=== PATIENT | female | born 1995 | race Two or more races ===

== ENCOUNTER 2024-07-16 11:27 | Emergency (ER) | payer OTHER, SELFPAY ==
--- NOTE | 2024-07-16 12:04 | PC.NURSE ---
Called pt back, no answer at this time
--- NOTE | 2024-07-16 12:38 | PC.NURSE ---
called pt back, no answer at this time
--- NOTE | 2024-07-16 12:55 | PC.NURSE ---
called pt back, no answer at this time
--- NOTE | 2024-07-16 14:45 | EKG_ITS ---
[facility] Test Date: 2024-07-16 Pat Name: MICHI MONTEIROepartment: Room: - Gender: Female [employer]: : 1995 Requested By: ED Temporary Provider Order Number: [id number] Reading MD: ED Temporary Provider Measurements Intervals Temple Rate: 87 P: 70 GA: 176 QRS: 70 QRSD: 75 T: -4 QT: 336 QTc: 405 Interpretive Statements SINUS RHYTHM NONSPECIFIC T-WAVE ABNORMALITY No previous ECG available for comparison /store/S0/[id number].pdf
[2024-07-16 14:46] VITALS: BP 110/73; PULSE 94; RESP 18; TEMP 36.8; O2SAT 98
--- NOTE | 2024-07-16 15:19 | XR_ITS ---
Examination: Complete OB ultrasound greater than 14 weeks Date and time of exam: July 16, 2024 1618 hrs. Indications: Chest pain beginning last night 8:00 PM, clinical diagnosis ovarian torsion Findings: Viable intrauterine single fetus with single amniotic sac Transverse, head maternal left Cardiac motion 150 BPM Placenta posterior grade 2 Umbilical cord insertion seen Amniotic fluid index normal Cervix ovaries are obscured by bowel gas. Composite estimated gestational age based on BPD, head circumference, abdominal circumference, femur length is 15 weeks 3 days Estimated weight 126.7 g. Survey of intracranial anatomy, spinal anatomy, abdominal anatomy, four-chamber heart performed with no abnormalities identified. Impression: Viable intrauterine gestation transverse presentation.
--- NOTE | 2024-07-16 15:20 | PD.EDRME ---
Rapid Medical Screening Exam RME Arrival date/time: 07/16/24 11:27 This is a 29-year-old female that comes in with complaint of left-sided chest pain that radiates down her left arm and also complains of numbness to her left arm. Patient also complains of some lower back pain. Patient reports that she is 15 weeks . Last menstrual period was March 03. Patient is a 3 para 2. Patient denies any nausea vomiting diarrhea. I have greeted and performed a focused initial assessment of this patient. Initial appropriate labs ordered at this time. A comprehensive ED assessment and evaluation of the patient and analysis of all test and completion of medical decision making process will be conducted by additional ED provider. Chief Complaint: Chest Pain Vital signs: Vital Signs Temperature 98.2 F 07/16/24 14:46 Pulse Rate 94 07/16/24 14:46 Respiratory Rate 18 07/16/24 14:46 Blood Pressure 110/73 07/16/24 14:46 Pulse Oximetry (%) 98 07/16/24 14:46 Oxygen Delivery Method Room Air 07/16/24 14:46
[2024-07-16 16:00] LABS: Basophils % (Auto) 0 % (0-2.5); Eosinophils # (Auto) 0.1 Thou/mm3 (0.0-0.5); Eosinophils % (Auto) 1 % (0-10); Hematocrit 36.4 % (36.0-46.0); Hemoglobin 12.2 g/dL (12.0-16.0); Immature Granulocytes % (Auto) 1 % (0-0); Immature Granulocytes Auto 0.07 Thou/mm3 (0.00-0.00); Lymphocytes # (Auto) 2.1 Thou/mm3 (1.0-4.8); Lymphocytes % (Auto) 19 % (10-50); Mean Corpuscular HGB Conc 33.5 g/dl (31.0-37.0); Mean Corpuscular Hemoglobin 32.3 pg (25.0-35.0); Mean Corpuscular Volume 96 fL (80-100); Monocytes # (Auto) 0.7 Thou/mm3 (0.0-0.8); Monocytes % (Auto) 6 % (0-12); Neutrophils # (Auto) 8.2 Thou/mm3 (1.8-7.7); Neutrophils % (Auto) 73 % (37-80); Nucleated Red Blood Cell % 0 /100 WBC (0); Platelet Count 240 Thou/mm3 (140-440); RDW Standard Deviation 46.6 fL (36.4-46.3); Red Blood Count 3.78 Miln/mm3 (4.00-5.20); White Blood Count 11.2 Thou/mm3 (3.6-11.0)
[2024-07-16 16:09] LABS: B-Type Natriuretic Peptide < 20 pg/mL (0-100)
[2024-07-16 16:11] LABS: Alanine Aminotransferase 26 U/L (10-49); Albumin, Serum 4.3 gm/dL (3.5-5.0); Albumin/Globulin Ratio 1.6 (1.2-2.2); Alkaline Phosphatase 59 U/L (46-116); Anion Gap 8 (7-16); Aspartate Amino Transferase 22 U/L (0-34); BUN/Creatinine Ratio 15 Ratio (12-20); Bilirubin,Total 0.4 mg/dL (0.3-1.2); Blood Urea Nitrogen 12 mg/dL (9-23); Calcium 9.5 mg/dL (8.3-10.6); Calcium (Corrected) 9.5 mg/dL (8.5-10.1); Carbon Dioxide 24.3 mMol/L (20.0-31.0); Chloride 105 mMol/L (98-107); Creatinine (Component) 0.8 mg/dL (0.6-1.3); Globulin 2.7 gm/dL (2.3-3.5); Glucose 67 mg/dL (74-106); Osmolality,Calculated 271 (275-295); Sodium 137 mMol/L (136-145); Troponin I < 0.002 ng/mL (0.0-0.045); eGFR > 60 See Note
[2024-07-16 16:43] LABS: Beta HCG,Quantitative 75271 mIU/mL (<5.0)
[2024-07-16 19:23] LABS: Collection Type, Urine Voided
[2024-07-16 19:30] LABS: Bilirubin,Urine Negative (Negative); Blood,Urine Trace (Negative); Clarity,Urine Clear (Clear/Hazy); Color,Urine Colorless (Lt Yel-Yel); Culture Indicated,Urine Not Indicated; Glucose, Urine Negative (Negative); Ketones,Urine Negative (Negative); Leukocyte Esterase,Urine Negative (Negative); Nitrite,Urine Negative (Negative); PH,Urine 6.5 (5.0-7.0); Protein,Urine Negative (Neg - Trace); RBC,Urine 1 /hpf (0-3); Specific Gravity,Urine 1.009 (1.001-1.035); Squamous Epithelial Cell,Urine 1 /hpf (0-5); Urobilinogen,Urine Negative mg/dL (0.0-1.0); WBC,Urine < 1 /hpf (0-5)
--- NOTE | 2024-07-16 20:04 | PD.EDRME ---
Rapid Medical Screening Exam RME Arrival date/time: 07/16/24 11:27 07/16/24 11:27 This is a 29-year-old female that comes in with complaint of left-sided chest pain that radiates down her left arm and also complains of numbness to her left arm. Patient also complains of some lower back pain. Patient reports that she is 15 weeks . Last menstrual period was March 03. Patient is a 3 para 2. Patient denies any nausea vomiting diarrhea. I have greeted and performed a focused initial assessment of this patient. Initial appropriate labs ordered at this time. A comprehensive ED assessment and evaluation of the patient and analysis of all test and completion of medical decision making process will be conducted by additional ED provider. Chief Complaint: Chest Pain Vital signs: Vital Signs Temperature 98.2 F 07/16/24 14:46 Pulse Rate 94 07/16/24 14:46 Respiratory Rate 18 07/16/24 14:46 Blood Pressure 110/73 07/16/24 14:46 Pulse Oximetry (%) 98 07/16/24 14:46 Oxygen Delivery Method Room Air 07/16/24 14:46 RME Narrative: 07/16/24 11:27 This is a 29-year-old female that comes in with complaint of left-sided chest pain that radiates down her left arm and also complains of numbness to her left arm. Patient also complains of some lower back pain. Patient reports that she is 15 weeks . Last menstrual period was March 03. Patient is a 3 para 2. Patient denies any nausea vomiting diarrhea. I have greeted and performed a focused initial assessment of this patient. Initial appropriate labs ordered at this time. A comprehensive ED assessment and evaluation of the patient and analysis of all test and completion of medical decision making process will be conducted by additional ED provider.
--- NOTE | 2024-07-16 20:14 | PC.NURSE ---
PT TOLD SECURITY SHE WAS LEAVING AT 2004
== END 2024-07-16 20:15 | disposition left against medical advice (07) ==
PROVIDERS: Nurse Practitioner Family; Emergency Provider Emergency Medicine
DX: O99.891 Other specified diseases and conditions complicating pregnancy (principal); R07.9 Chest pain, unspecified; R20.0 Anesthesia of skin; M54.50 Low back pain, unspecified; R94.31 Abnormal electrocardiogram [ECG] [EKG]; Z3A.15 15 weeks gestation of pregnancy; Z53.29 Procedure and treatment not carried out because of patient's decision for other reasons
CPT/HCPCS: 36415; 76805; 80053; 81001; 83880; 84484; 84702; 85025; 93005; 99281

== ENCOUNTER 2024-12-31 23:01 | Inpatient (IN) | payer OTHER, SELFPAY ==
[2024-12-31 23:08] VITALS: BMI 32.1
[2024-12-31 23:21] VITALS: BP 113/71; PULSE 83; RESP 18; RESP 98; TEMP 36.8
[2024-12-31 23:45] VITALS: PULSE 86; O2SAT 95
[2024-12-31 23:50] VITALS: PULSE 87; O2SAT 97
[2024-12-31 23:55] VITALS: PULSE 91; O2SAT 96
[2024-12-31 23:58] VITALS: PULSE 96; O2SAT 94
[2025-01-01] VITALS (395 sets, daily range): BP systolic 81–112; BP diastolic 50–73; PULSE 60–107; RESP 18; TEMP 36.5–36.8; O2SAT 90–100
--- NOTE | 2025-01-01 02:20 | ESHP_ITS ---
Documentation for date of: 01/01/25 OB Labor/Induct. HPI History of Present Illness Chief complaint: Contractions, vaginal bleeding : 3 Para: 2 Term pregnancies: 2 pregnancies: 0 Living children: 2 History of Abortions: Spontaneous and Elective: 0 History of Vaginal deliveries: 2 History of sections: No History of : No TANISHA: 01/04/25 Gestational Age (weeks): 39 Gestational Age (days): 4 History of present illness: The patient is a 29-year-old -0-0-2 EDC 01/04 at 39-4/7 weeks with all care with Dr Bowser. She was seen in triage with some bleeding. She was 1 to 2 cm dilated. She was observed for about an hour or so and reexamined she had progressed to 2 to 3 cm dilatation and was gayla every 1 to 2 minutes. Patient was admitted in early labor. Group B strep negative. She is interested in an epidural. History of Present Dating criteria: other (All records are not available on admission) Adequate Care: Yes Ultrasounds: normal mid trimester US Obstetrical complications: none Medical complications: none Labs Maternal Blood Type: Unknown Labs: Negative: Chlamydia, Gonorrhea and Group Beta Strep and Unknown: RPR, Hepatitis B, Rubella Titre, HIV, Herpes Type 1 and Herpes Type 2 Past Medical History Surgical History SURGICAL: Negative Section Meds Home Medications and Allergies Home Medications ?Medication ?Instructions ?Recorded ?Confirmed ?Type No Known Home Medications 08/24/2107/28 History Allergies Allergy/AdvReac Type Severity Reaction Status Date / Time No Known Allergies Allergy Verified 07/16/24 11:32 OB Exam Physical Exam Vital signs: Temp Pulse Resp BP Pulse Ox 98.3 F 94 18 92/54 L 98 12/31/24 23:21 01/01/25 01:49 12/31/24 23:21 01/01/25 01:49 01/01/25 02:16 Detailed Labor and Delivery Exam Dilation (cm): 2-3 Effacement (%): 75 Cervix position: posterior station: -2 Consistency: medium Presentation: Vertex Membranes: intact Baseline heart rate: 150 monitor accelerations: 15x15 monitor decelerations: None senior living variability: Marked (>25) Contraction frequency (min): Every 1 to 2 minutes OB Assessment & Plan Assessment and Plan (1) Supervision of high risk in third trimester: Status: Acute Assessment and plan: Admit patient. Pain medication as needed. Patient is interested in epidural. Anticipate .
[2025-01-01] MEDS: RINGERS LACTATED 1000 ML 1,000 ML 100 ML IV ×4 (03:07→19:46)
[2025-01-01 04:24] LABS: Syphilis Nonreactive (Nonreactive)
[2025-01-01 05:48] LABS: Basophils % (Auto) 0 % (0-2.5); Eosinophils # (Auto) 0.1 Thou/mm3 (0.0-0.5); Eosinophils % (Auto) 1 % (0-10); Hematocrit 33.6 % (36.0-46.0); Hemoglobin 11.4 g/dL (12.0-16.0); Immature Granulocytes % (Auto) 2 % (0-0); Immature Granulocytes Auto 0.25 Thou/mm3 (0.00-0.00); Lymphocytes # (Auto) 2.2 Thou/mm3 (1.0-4.8); Lymphocytes % (Auto) 18 % (10-50); Mean Corpuscular HGB Conc 33.9 g/dl (31.0-37.0); Mean Corpuscular Hemoglobin 33.3 pg (25.0-35.0); Mean Corpuscular Volume 98 fL (80-100); Monocytes # (Auto) 0.8 Thou/mm3 (0.0-0.8); Monocytes % (Auto) 7 % (0-12); Neutrophils # (Auto) 8.4 Thou/mm3 (1.8-7.7); Neutrophils % (Auto) 72 % (37-80); Nucleated Red Blood Cell % 0 /100 WBC (0); Platelet Count 192 Thou/mm3 (140-440); RDW Standard Deviation 51.3 fL (36.4-46.3); Red Blood Count 3.42 Miln/mm3 (4.00-5.20); White Blood Count 11.7 Thou/mm3 (3.6-11.0)
--- NOTE | 2025-01-01 12:30 | PD.LDPN ---
Documentation for date of: 01/01/25 OB Labor Progress Note Pain Control Comments: Epidural Pelvic Exam Dilation (cm): 3 Effacement (%): 50 station: -3 Amniotic membrane status: Intact Contractions Monitor mode: External Contraction frequency: 1-6 Contraction pattern: Tetanic Contraction intensity: Mild Status status: Category ll Assessment and Plan Comments: Term Labor Anticipate Informed consent obtained patient made aware of the risks complications alternatives and benefits of OVD and C/S and agrees with these modes of delivery if indicated.
[2025-01-01] MEDS: OXYTOCIN in NS 30 units 30 UNIT/500 ML BAG IV (12:44)
[2025-01-02] VITALS (18 sets, daily range): BP systolic 96–113; BP diastolic 48–75; PULSE 80–105; RESP 16–20; TEMP 36.4–37.3; O2SAT 95–100
[2025-01-02] MEDS: CITRIC ACID/SODIUM CITR 15 ML UDC (BICITRA) 30 ML PO (00:05)
[2025-01-02] MEDS: FAMOTIDINE INJ 10 MG/ML VIAL 2 ML 20 MG IV (00:06)
[2025-01-02] MEDS: ceFAZolin/D5W 2 GM IV 2 GM/100 ML BAG IV (00:06)
--- NOTE | 2025-01-02 00:14 | PD.LDPN ---
Documentation for date of: 01/02/25 OB Labor Progress Note Pelvic Exam Dilation (cm): 4 Effacement (%): 50 station: -3 Amniotic membrane status: Intact Contractions Monitor mode: External Contraction frequency: 1-4.5 Contraction pattern: Tetanic Contraction intensity: Moderate Status status: Category l Assessment and Plan Comments: Patient declines further trial of vaginal delivery Elects delivery She is multiparous and desires voluntary sterilization and has signed consent forms over 30 days ago in the office. Informed consent was obtained. She was made aware of the risks, complications alternatives and benefits of the proposed delivery and she agrees. She is aware of the failure rate and increased risk of tubal ectopic gestation of occurs.
--- NOTE | 2025-01-02 01:54 | ESDS_ITS ---
DS: Providers Provider Date of admission: 01/01/25 02:35 Primary care physician: Physician No Primary/Family Admitting Provider: Melissa Feliciano MD ([facility]) Attending Provider on Admission: Terry Bowser MD Attending Provider on DC: Terry Bowser MD Discharging Provider: Terry Bowser MD DS: Diagnosis Problem List Completed Was Problem List Reviewed/Reconciled?: Yes Summary/Hosp Course Brief History: The patient is a 29-year-old -0-0-2 EDC 01/04 at 39-4/7 weeks with all care with Dr Bowser. She was seen in triage with some bleeding. She was 1 to 2 cm dilated. She was observed for about an hour or so and reexamined she had progressed to 2 to 3 cm dilatation and was gayla every 1 to 2 minutes. Patient was admitted in early labor. Group B strep negative. She is interested in an epidural. Peripartum Data Delivery Method: Low Transverse Episiotomy Description: None Procedures: Procedures Operation Date: 01/02/25 00:45 <No data on this case meets the specified criteria> Time Spent with Patient Time attestation: Total time spent providing and/or coordinating discharge services: Exam Vital Signs Temp Pulse Resp BP Pulse Ox O2 Del Method 97.7 F 85 18 101/64 100 Room Air 01/01/25 19:57 01/02/25 00:12 01/01/25 19:57 01/02/25 00:12 01/02/25 00:17 01/01/25 07:27 Discharge Plan Plan Patient Disposition: HOME (Self Care) Patient condition on transfer: Stable Prescriptions/Referrals Prescriptions/Med Rec: New hydrocodone-acetaminophen 5-325 mg tablet 1 tab PO Q6H MDD 4 PRN (Reason: pain) Qty: 20 0RF ibuprofen 600 mg tablet 600 mg PO Q6H PRN (Reason: pain) Qty: 30 0RF Referrals: No Primary/Family,Physician [Primary Care Provider] - Patient/Caregiver Discharge Instructions Discharge Activity: activity as tolerated Other Discharge Activity Instructions:: Follow up office 1 week. Education Materials: C Section Dc Print Language: Romanian Stand Alone Forms: Sandra Award Info., Patient Portal Info Letter Planned Discharge Date 01/04/25
--- NOTE | 2025-01-02 01:55 | ESOP_ITS ---
Operative Note - FLIGHT OPERATION COORDINATOR Procedure Date of procedure: 01/02/25 Procedure Performed: Primary low-transverse section Via Pfannenstiel skin incision Bilateral salpingectomy Indication: Intrauterine at 39 weeks and 5 days Active labor Failure to progress Multiparity desires voluntary sterilization Pre-Op diagnosis: Intrauterine at 39 weeks and 5 days Active labor Failure to progress Multiparity desires voluntary sterilization Post-Op diagnosis: Intrauterine at 39 weeks and 5 days Active labor Failure to progress Multiparity desires voluntary sterilization Occiput Transverse Endometriosis Anesthesia type: Spinal Procedure description: After proper informed consent was obtained and the patient made aware the risk complications alternatives and benefits of the proposed procedure she was taken to the operating room. She underwent induction of spinal anesthesia. She was prepped and draped in the usual sterile fashion. A timeout was performed. A Pfannenstiel skin incision was made with the scalpel and carried through to the underlying layer of fascia with the Bovie. The fascia was nicked in the midline and the incision was extended bilaterally with the Bovie. The inferior aspect of the fascial incision was grasped in the midline and the rectus muscle dissected off. The superior aspect the fascia incision was grasped with Jocelynn clamps elevated and the underlying rectus muscle dissected off with the Bovie the rectus muscles were in the midline and the peritoneum elevated between 2 Candelaria clamps and entered sharply with the Metzenbaum scissors. The incision was extended superiorly and inferiorly with good realization of bladder. The bladder blade was then inserted and the vesicouterine peritoneum was incised transversely and the bladder flap created digitally. The low transverse incision was made on the uterus the incision was extended bilaterally digitally. The 's head delivered mouth and nose suction with a bulb suction. Shoulder and body delivered atraumatically. The cord was clamped and cut. The infant was handed off to waiting pediatric staff Cord blood and gases were sent. Placenta was delivered manually. The uterus exteriorized and cleared of all clots and debris. The uterus was initially atonic but responded to Pitocin and Methergine. The uterine incision was closed with #1-0 chromic catgut suture in a running interlocking fashion. A second layer of the same suture was used imbricate the first layer and obtain excellent hemostasis. The right fallopian tube was grasped with the Richard clamp and using the Enseal X1 large jaw a right salpingectomy was performed and specimen sent to pathology. The left fallopian tube was grasped at the fimbriated end with a Houston clamp and using the Enseal X1 large jaw left salpingectomy was performed. Hemostasis was achieved. The lower uterine segment was hemostatic. The uterus was returned to the abdomen. The gutters were cleared of all clots and debris. The peritoneum closed with 0 chromic suture in a running fashion. The muscle closed with 0 chromic suture in a running fashion. The fascia was closed with 0 Vicryl beginning at each angle and ending in the center running fashion. Subcutaneous tissue was irrigated with normal saline solution found to be hemostatic closed with 2-0 chromic catgut suture in running fashion. The skin was closed with 4-0 Monocryl. A Dermabond perineal dressing was applied. A sterile pressure dressing was applied. She tolerated the procedure well. Counts were correct. I discussed with the patient the nature of her condition and the intraoperative findings expectation for recovery all questions answered. Specimen: left tube and right tube Estimated blood loss (ml): 800 Findings: Viable female Apgars 9/ 9 Cephalic presentation Occiput transverse Placenta removed complete and intact Superficial endometriotic implants on the ovaries and posterior uterosacral ligaments. Complications: none Surgical staff Land Resource Specialist JANIE Tineo Land Acquisition Specialist: Ryan Awan CRNA Operation Date: 01/02/25 00:45 <No data on this case meets the specified criteria> Diagnosis Discharge Diagnosis (1) delivery delivered: Status: Acute (2) Sterilization: Status: Acute (3) Endometriosis: Status: Acute Problem List Completed Was Problem List Reviewed/Reconciled?: Yes
[2025-01-02] MEDS: OXYTOCIN in NS 20 units 20 UNIT/1,000 ML BAG 125 UNIT IV (04:23)
--- NOTE | 2025-01-02 06:10 | OBDSUM_ITS ---
Data (Allen) Data Hx Section: No : 3 Term: 2 : 0 Livin Abortions: Spontaneous & Theraputic: 0 Delivery Data (Allen) Labor Data Initiation of labor: Augmentation Induction/Augmentation Agent: Pitocin ROM date: 01/02/25 ROM time: 01:00 Amniotic membrane rupture type: Artificial Amniotic fluid description: Clear Delivery Data EDC: 01/04/25 EDC calculated by:: LMP/early US confirmation Onset of labor date: 01/01/25 Onset of labor time: 00:52 Complete dilation date: 01/02/25 Complete dilation time: 00:00 [place] delivery date: 01/02/25 delivery time: 01:01 Gestational age (weeks): 39 Gestational age (days): 4 Placenta delivery date: 01/02/25 Placenta delivery time: 01:04 Stage 1 total time: Labor - Stage 1 Duration 23 hours and 8 minutes Delivered by: geiling Delivery nurse: jenifer Sequeira nurse: mark rn Director Of Cloud Services at delivery: Yes (dr choose to come dr muller) Support person(s) at delivery: dad Delivery Method Delivery method: Low Transverse Presentation: Vertex position: ROT Anesthesia Type Anesthesia Type: Spinal Anesthesia type: Spinal Placenta Placenta delivery description: Manual Removal Cord blood sent to lab: Yes cord blood collection: Cord Blood Type Episiotomy Episiotomy description: None EBL Estimated blood loss (ml): 700 Umbilical Cord cord description: 3 Vessels Additional Procedures Bilateral salpingectomy Complications Complications: None Data (Allen) Data 's gender: Female weight (gms): 8 lb 8 oz Weight (pounds): 8 lbs and 8.0 ozs 1 minute: 9 5 minutes: 9
[2025-01-02 08:16] LABS: Basophils # (Auto) 0.1 Thou/mm3 (0.0-0.2); Basophils % (Auto) 0 % (0-2.5); Eosinophils % (Auto) 0 % (0-10); Hematocrit 32.3 % (36.0-46.0); Hemoglobin 11.4 g/dL (12.0-16.0); Immature Granulocytes % (Auto) 1 % (0-0); Immature Granulocytes Auto 0.09 Thou/mm3 (0.00-0.00); Lymphocytes # (Auto) 1.4 Thou/mm3 (1.0-4.8); Lymphocytes % (Auto) 10 % (10-50); Mean Corpuscular HGB Conc 35.3 g/dl (31.0-37.0); Mean Corpuscular Hemoglobin 33.2 pg (25.0-35.0); Mean Corpuscular Volume 94 fL (80-100); Monocytes # (Auto) 0.7 Thou/mm3 (0.0-0.8); Monocytes % (Auto) 5 % (0-12); Neutrophils # (Auto) 12.2 Thou/mm3 (1.8-7.7); Neutrophils % (Auto) 84 % (37-80); Nucleated Red Blood Cell % 0 /100 WBC (0); Platelet Count 174 Thou/mm3 (140-440); RDW Standard Deviation 48.5 fL (36.4-46.3); Red Blood Count 3.43 Miln/mm3 (4.00-5.20); White Blood Count 14.5 Thou/mm3 (3.6-11.0)
[2025-01-02] MEDS: KETOROLAC INJ 30 MG/ML VIAL IVP (13:45)
[2025-01-03 00:15] VITALS: BP 101/66; PULSE 80; RESP 16; TEMP 36.8; O2SAT 97
[2025-01-03 04:15] VITALS: BP 112/64; PULSE 86; RESP 17; TEMP 36.6; O2SAT 98
[2025-01-03] MEDS: HYDROcodone/APAP 5/325 TABLET 1 TAB PO ×2 (05:49→17:20)
--- NOTE | 2025-01-03 08:07 | ESPR_ITS ---
Subjective Subjective Interval history: Patient is a 29-year-old G3,now P3003 status post primary with tubal ligation for arrest of dilatation at 4 cm. Patient stated she had two 6 pound babies and this baby was [address] Bowser did her . Today she is sitting up eating breakfast reporting soreness. She is surprised how different she feels after her . I did encourage narcotic use if she needs to and taking ibuprofen. Patient will get up to shower later. She denies heavy bleeding. She is tolerating a general diet. Exam Vital Signs Temp Pulse Resp BP Pulse Ox O2 Del Method 97.9 F 86 17 112/64 98 Room Air 01/03/25 04:15 01/03/25 04:15 01/03/25 04:15 01/03/25 04:15 01/03/25 04:15 01/03/25 04:15 Narrative Exam Patient is alert and oriented x 3 in no apparent distress abdomen slightly distended incision clean dry and intact extremities show no significant edema or erythema Objective Labs 01/02/25 07:58 Labs: Laboratory Results - last 24 hr 01/02/25 07:58 WBC 14.5 H RBC 3.43 L Hgb 11.4 L Hct 32.3 L MCV 94 MCH 33.2 MCHC 35.3 RDW Std Deviation 48.5 H Plt Count 174 Neut % (Auto) 84 H Lymph % (Auto) 10 [place] % (Auto) 5 Eos % (Auto) 0 Baso % (Auto) 0 Neut # (Auto) 12.2 H Lymph # (Auto) 1.4 [place] # (Auto) 0.7 Eos # (Auto) 0.0 Baso # (Auto) 0.1 Immature Gran # (Auto) 0.09 H Absolute Nucleated RBC 0.00 Immature Gran % 1 H Nucleated RBC % 0 Assessment & Plan Problem List (1) delivery delivered: Problem details: Encourage ambulation. Take pain meds as needed. Recheck CBC this morning. Probable discharge tomorrow. Status: Acute (2) Sterilization: Status: Acute (3) Endometriosis: Status: Acute Time Spent With Patient Time: Total time spent is greater than 50% in coordination of care (as documented) at patient's floor/unit and/or counseling patient:
[2025-01-03 08:31] LABS: Basophils % (Auto) 0 % (0-2.5); Eosinophils # (Auto) 0.1 Thou/mm3 (0.0-0.5); Eosinophils % (Auto) 1 % (0-10); Hematocrit 30.3 % (36.0-46.0); Hemoglobin 10.2 g/dL (12.0-16.0); Immature Granulocytes % (Auto) 1 % (0-0); Immature Granulocytes Auto 0.14 Thou/mm3 (0.00-0.00); Lymphocytes # (Auto) 1.9 Thou/mm3 (1.0-4.8); Lymphocytes % (Auto) 12 % (10-50); Mean Corpuscular HGB Conc 33.7 g/dl (31.0-37.0); Mean Corpuscular Hemoglobin 33.3 pg (25.0-35.0); Mean Corpuscular Volume 99 fL (80-100); Monocytes # (Auto) 1.1 Thou/mm3 (0.0-0.8); Monocytes % (Auto) 7 % (0-12); Neutrophils # (Auto) 11.9 Thou/mm3 (1.8-7.7); Neutrophils % (Auto) 79 % (37-80); Nucleated Red Blood Cell % 0 /100 WBC (0); Platelet Count 192 Thou/mm3 (140-440); RDW Standard Deviation 52.2 fL (36.4-46.3); Red Blood Count 3.06 Miln/mm3 (4.00-5.20); White Blood Count 15.2 Thou/mm3 (3.6-11.0)
[2025-01-03 08:40] VITALS: BP 104/67; PULSE 93; RESP 18; TEMP 36.6; O2SAT 96
[2025-01-03] MEDS: IBUPROFEN TAB 400 MG TABLET 800 MG PO ×2 (08:54→20:09)
[2025-01-03 16:00] VITALS: BP 99/65; PULSE 84; RESP 16; O2SAT 95
[2025-01-03 19:56] VITALS: BP 108/70; PULSE 96; RESP 17; TEMP 36.7; O2SAT 95
[2025-01-03] MEDS: MEASLES, MUMPS & RUBELLA VACC 0.5 ML VIAL SCi (22:46)
[2025-01-03] MEDS: Milk Of Magnesia Susp 30 ML UDC PO (23:16)
[2025-01-04] MEDS: IBUPROFEN TAB 400 MG TABLET 800 MG PO (03:43)
[2025-01-04 04:36] VITALS: BP 98/62; PULSE 74; RESP 17; TEMP 36.7; O2SAT 97
--- NOTE | 2025-01-04 07:43 | PD.LDPPPRG ---
Subjective Subjective Interval history: Delivery type: Patient doing well this morning. No acute complaints. Ambulating, tolerating p.o. and voiding without difficulty. HTN/Pre-Eclampsia screen: No chest pain, shortness of breath, headache, visual changes, epigastric or right upper quadrant pain. Breast-feeding, lochia diminishing. Bowel: Flatus+/ BM+ Exam Vital Signs Temp Pulse Resp BP Pulse Ox O2 Del Method 98.1 F 74 17 98/62 97 Room Air 01/04/25 04:36 01/04/25 04:36 01/04/25 04:36 01/04/25 04:36 01/04/25 04:36 01/04/25 04:36 Constitutional Constitutional: no acute distress Routine HEENT Exam Head: Present normocephalic and atraumatic Eye: Present EOMI and PERRL ENT: Present mucous membranes moist Routine Neck Exam Neck: Present supple and trachea midline Routine Respiratory Exam Respiratory: Present chest non-tender, lungs clear, normal breath sounds and no resp distress Routine Cardiovascular Exam Cardiovascular: Present RRR Routine Abdominal Exam Abdominal: Present soft and normoactive bowel sounds Routine Extremities Exam Extremities: Present full ROM Routine Skin Exam Skin: Present intact, dry and warm Routine Neurological Exam Neurological: Present alert, oriented X3 and CN II-XII intact Routine Psychiatric Exam Psychiatric: Present normal affect and normal thought process Objective Labs 01/03/25 07:43 Labs: Laboratory Results - last 24 hr 01/03/25 07:43 WBC 15.2 H RBC 3.06 L Hgb 10.2 L Hct 30.3 L MCV 99 MCH 33.3 MCHC 33.7 RDW Std Deviation 52.2 H Plt Count 192 Neut % (Auto) 79 Lymph % (Auto) 12 [place] % (Auto) 7 Eos % (Auto) 1 Baso % (Auto) 0 Neut # (Auto) 11.9 H Lymph # (Auto) 1.9 [place] # (Auto) 1.1 H Eos # (Auto) 0.1 Baso # (Auto) 0.0 Immature Gran # (Auto) 0.14 H Absolute Nucleated RBC 0.00 Immature Gran % 1 H Nucleated RBC % 0 Assessment & Plan Problem List (1) delivery delivered: Status: Acute Assessment and plan: PPD/POD#2 1. Continue routine care 2. Transition to PO meds. 3. Encourage to ambulate/ breast-feed 4. Anticipate discharge home today. (2) Sterilization: Status: Acute (3) Endometriosis: Status: Acute Time Spent With Patient Time: Total time spent is greater than 50% in coordination of care (as documented) at patient's floor/unit and/or counseling patient:
--- NOTE | 2025-01-04 07:44 | ESDS_ITS ---
DS: Providers Provider Date of admission: 01/01/25 02:35 Primary care physician: Physician No Primary/Family Admitting Provider: Melissa Feliciano MD ([facility]) Attending Provider on Admission: Sharath Ennis MD Consults: 01/02/25 03:51 Referral Routine Comment: Attending Provider on DC: Sharath Ennis MD Discharging Provider: Sharath Ennis MD DS: Diagnosis Discharge Diagnosis (1) Endometriosis: Status: Acute (2) Sterilization: Status: Acute (3) delivery delivered: Status: Acute Problem List Completed Was Problem List Reviewed/Reconciled?: Yes Summary/Hosp Course Brief History: The patient is a 29-year-old -0-0-2 EDC 01/04 at 39-4/7 weeks with all pren ata care with Dr Bowser. She was seen in triage with some bleeding. She was 1 to 2 cm dilated. She was observed for about an hour or so and reexamined she had progressed to 2 to 3 cm dilatation and was gayla every 1 to 2 minutes. Patient was admitted in early labor. Group B strep negative. She is interested in an epidural. Peripartum Data Delivery Method: Low Transverse Episiotomy Description: None Procedures: Procedures Operation Date: 01/01/25 00:55 Actual Procedure Side Surgeon p w/tubal OB Bilateral Terry Bowser MD Time Spent with Patient Time attestation: Total time spent providing and/or coordinating discharge services: Exam Vital Signs Temp Pulse Resp BP Pulse Ox O2 Del Method 98.1 F 74 17 98/62 97 Room Air 01/04/25 04:36 01/04/25 04:36 01/04/25 04:36 01/04/25 04:36 01/04/25 04:36 01/04/25 04:36 Discharge Plan Plan Patient Disposition: HOME (Self Care) Patient condition on transfer: Stable Prescriptions/Referrals Prescriptions/Med Rec: New hydrocodone-acetaminophen 5-325 mg tablet 1 tab PO Q6H MDD 4 PRN (Reason: pain) Qty: 20 0RF ibuprofen 600 mg tablet 600 mg PO Q6H PRN (Reason: pain) Qty: 30 0RF Referrals: Terry Bowser MD [Physician] - No Primary/Family,Physician [Primary Care Provider] - Patient/Caregiver Discharge Instructions Discharge Activity: activity as tolerated Other Discharge Activity Instructions:: Follow up office 1 week. Education Materials: After Delivery Vincent Concerns, After a , C Section Dc Print Language: Moldovan Stand Alone Forms: Sandra Award Info., Patient Portal Info Letter, DC from Surgery Discharge Order Discharge Orders: Discharge (Routine); Ordered 01/04/25 Ordered By: Sharath Ennis Planned Discharge Date 01/04/25
[2025-01-04 08:25] VITALS: BP 100/65; PULSE 80; RESP 16; TEMP 36.7; O2SAT 95
== END 2025-01-04 13:05 | disposition home or self-care (01) | DRG 785 ==
LOC: S4SX 01-01 23:54 → S4NX 01-02 01:06
PROVIDERS: Specialist; Admitting Provider Obstetrics & Gynecology; Visit Provider Obstetrics & Gynecology
PROC: 0UL70ZZ Occlusion of Bilateral Fallopian Tubes, Open Approach (ICD-10-PCS; CPT 59514; principal; 2025-01-02 00:30)
DX: O34.211 Maternal care for low transverse scar from previous cesarean delivery (principal); O62.2 Other uterine inertia; Z37.0 Single live birth; Z3A.39 39 weeks gestation of pregnancy; Z30.2 Encounter for sterilization; N80.9 Endometriosis, unspecified; O62.0 Primary inadequate contractions
CPT/HCPCS: 36415; 59025; 59409; 59899; 85025; 86780; 86850; 86900; 86901; 90707; 94762; A4649; J0689; J1885; J2210; J2250; J2274; J2590; J2704; J2795; J3010; J3490; J7120; A9270; J2270